=== PATIENT | male | born 1965 | race African-American/Black ===

== ENCOUNTER → 2016-09-28 | Outpatient (CLI) | payer OTHER | END | disposition home or self-care (01) | DX: R26.2 Difficulty in walking, not elsewhere classified (principal); M25.552 Pain in left hip; M25.652 Stiffness of left hip, not elsewhere classified; M62.81 Muscle weakness (generalized) | CPT/HCPCS: 97110 GP; 97150 GO; 97161 GP; 97165 GO ==